=== PATIENT | female | born 1995 ===

== ENCOUNTER 2017-09-03 01:30 | Emergency (ER) | payer OTHER ==
[2017-09-03] MEDS ORDERED: NACL 0.9% 1000 ML 1,000 ML IV ONE ×2 (02:06→03:44)
[2017-09-03 02:13] LABS: Basophils % (Auto) 0.5 % (0.0-1.8); Eosinophils # (Auto) 0.1 K/mm3 (0.0-0.4); Eosinophils % (Auto) 0.8 % (0.0-4.3); Hematocrit 34.9 % (30.3-42.9); Hemoglobin 11.6 gm/dl (10.1-14.3); Lymphocytes # (Auto) 0.9 K/mm3 (1.2-5.4); Lymphocytes % (Auto) 14.2 % (13.4-35.0); Mean Corpuscular HGB Conc 33 % (30-34); Mean Corpuscular Hemoglobin 28 pg (28-32); Mean Corpuscular Volume 84 fl (79-97); Monocytes # (Auto) 0.5 K/mm3 (0.0-0.8); Monocytes % (Auto) 8.6 % (0.0-7.3); Platelet Count 224 K/mm3 (140-440); Red Blood Count 4.16 M/mm3 (3.65-5.03); Red Cell Distribution Width 13.4 % (13.2-15.2)
[2017-09-03 02:45] LABS: BUN/Creatinine Ratio 14; Blood Urea Nitrogen 10 mg/dL (7-17); Calcium 8.1 mg/dL (8.4-10.2); Hemolysis Index 60
[2017-09-03] MEDS ORDERED: TYLENOL PO ONE (03:22)
[2017-09-03 03:26] LABS: INR 0.93 (0.87-1.13)
[2017-09-03 03:27] LABS: Partial Thromboplastin Time 27.8 Sec. (24.2-36.6)
--- NOTE | 2017-09-03 03:53 | XRay Report ---
FINAL REPORT EXAM: XR CHEST ROUTINE 2V HISTORY: cough, sycnope COMPARISON: None available. FINDINGS:: Frontal and lateral views of the chest obtained. Cardiac silhouette is within normal limits. No focal consolidation or effusion. No pneumothorax. Visualized bony thorax is grossly intact. IMPRESSION:: No acute findings.
--- NOTE | 2017-09-03 04:03 | Cat Scan Report ---
FINAL REPORT EXAM: CT HEAD/BRAIN WO CON HISTORY: sandra, syncope, nose bleed COMPARISON: None available. TECHNIQUE: Axial images obtained skull base through vertex. FINDINGS: No acute intracranial hemorrhage, midline shift or pathologic extra axial fluid collection. Ventricles and cisterns are normal in size and configuration for the patient's age. Hu-white differentiation preserved. Calvarium grossly intact. Visualized ocular globes are grossly unremarkable. Moderate frothy material in the right sphenoid sinus. Moderate mucosal thickening the visualized ethmoid air cells. Visualized mastoid air cells are clear. Nasal bone is not included on this exam. IMPRESSION: No grossly acute intracranial abnormality. Moderate paranasal sinus disease.
[2017-09-03 04:48] LABS: Bilirubin,Urine NEG (Negative); Blood,Urine NEG (Negative); Color,Urine Yellow (Yellow); Mucus,Urine 2+ /HPF; RBC,Urine < 1.0 /HPF (0.0-6.0); Urobilinogen,Urine < 2.0 mg/dL (<2.0)
--- NOTE | 2017-09-03 05:13 | Emergency Department Report ---
ED ENT HPI - General Chief complaint: Nosebleed Stated complaint: NOSEBLEED; +LOC IN TRIAGE Time Seen by Provider: 09/03/17 02:37 Source: patient Mode of arrival: Ambulatory Limitations: No Limitations - History of Present Illness Initial comments: 22-year-old female with a past medical history of chronic intermittent epistaxis presents to the Hospital complaining of intermittent epistaxis for the last several days. She's had 3-4 episodes since yesterday. Blood will come from either nostril at a time. At noon she had a significant prolonged episode of bleeding from both nostrils. While bending over the toilet with the nosebleed she had a syncopal episode witnessed by her boyfriend lasting a couple of seconds. Upon arrival to the ED while at triage when the patient began to feel lightheaded, hot, and had ringing in her ears and had a repeat syncopal episode. Patient complain of shortness of breath earlier with syncopal episode at home but denies currently. She also denies chest pain, calf tenderness, recent travel, or edema. Patient has been having URI symptoms including cough and low-grade fever several days. Appetite has been decreased but she's been drinking plenty of fluids. She complains of a left-sided frontal headache that has been present prior to syncopal episode but is decreasing. Patient has had chronic intermittent epistaxis for years and has not been seen by ENT - Related Data Allergies Allergy/AdvReac Type Severity Reaction Status Date / Time No Known Allergies Allergy Unverified 09/03/17 01:42 ED Dental HPI - General Chief complaint: Nosebleed Stated complaint: NOSEBLEED; +LOC IN TRIAGE Time Seen by Provider: 09/03/17 02:37 Source: patient Mode of arrival: Ambulatory Limitations: No Limitations - Related Data Allergies Allergy/AdvReac Type Severity Reaction Status Date / Time No Known Allergies Allergy Unverified 09/03/17 01:42 ED Review of Systems ROS: Stated complaint: NOSEBLEED; +LOC IN TRIAGE Other details as noted in HPI Comment: All other systems reviewed and negative Other: Constitutional: No fevers chills or weight loss Eyes: No eye pain visual changes or discharge ENT: No ear pain or throat pain Neck: Denies pain Respiratory: Denies cough wheezing Cardiovascular: Denies chest pain, palpitations GI: Denies abdominal pain, nausea, vomiting, diarrhea : Denies dysuria Musculoskeletal: Denies back pain Skin: Denies rash, lesions, erythema Neurologic: Denies numbness, weakness Psychiatric: Denies suicidal ideation, hallucinations ED Past Medical Hx - Past Medical History Previous Medical History?: Yes Additional medical history: "sinus problems" - Surgical History Past Surgical History?: No - Social History Smoking Status: Never Smoker Substance Use Type: None ED Physical Exam - General Limitations: No Limitations - Other Other exam information: General: No limitations, patient is alert in no acute distress Head exam: Atraumatic, normocephalic Eyes exam: Normal appearance, pupils equal reactive to light, extraocular movements intact ENT: Moist mucous membrane, normal oropharynx. No posterior pharyngeal exudates or lymphadenopathy. No active epistaxis, septal hematoma, or clots of blood in nostril Neck exam: Normal inspection, full range of motion, no meningismus nontender Respiratory exam: Clear to auscultation bilateral, no wheezes, rales, crackles Cardiovascular: Normal rate and rhythm. Heart rate noted to increase with sitting up in the bed Abdomen: Soft, nondistended, and nontender, with normal bowel sounds, no rebound, or guarding Extremity: Full range of motion normal inspection no deformity, no calf tenderness or edema Back: Normal Inspection, full range of motion, no tenderness Neurologic: Alert, oriented x3, cranial nerves intact, no motor or sensory deficit Psychiatric: normal affect, normal mood Skin: Warm, dry, intact ED Course Vital Signs 09/03/17 09/03/17 09/03/17 01:36 02:05 02:13 Temperature 99.2 F 100.5 F H Pulse Rate 112 H 99 H Respiratory 16 16 Rate Blood Pressure 135/90 114/71 Blood Pressure 114/71 [Right] O2 Sat by Pulse 98 99 Oximetry 09/03/17 09/03/17 09/03/17 02:16 02:30 02:46 Temperature Pulse Rate Respiratory Rate Blood Pressure 111/77 121/79 121/79 Blood Pressure [Right] O2 Sat by Pulse 96 98 97 Oximetry 09/03/17 09/03/17 09/03/17 02:59 03:00 03:16 Temperature Pulse Rate Respiratory 16 Rate Blood Pressure 121/79 114/71 Blood Pressure [Right] O2 Sat by Pulse 100 100 Oximetry 09/03/17 09/03/17 09/03/17 03:30 04:02 04:08 Temperature Pulse Rate Respiratory 16 Rate Blood Pressure 114/71 114/71 Blood Pressure [Right] O2 Sat by Pulse 98 97 Oximetry 09/03/17 09/03/17 09/03/17 04:16 04:30 04:46 Temperature Pulse Rate 88 83 87 Respiratory 14 13 16 Rate Blood Pressure 143/96 132/86 132/86 Blood Pressure [Right] O2 Sat by Pulse 98 99 99 Oximetry 09/03/17 05:00 Temperature Pulse Rate 79 Respiratory 19 Rate Blood Pressure 121/89 Blood Pressure [Right] O2 Sat by Pulse 99 Oximetry - Reevaluation(s) Reevaluation #1: 09/03/17 05:13 Patient treated with normal saline with improvement in heart rate. Tylenol provided for low-grade fever. ED Medical Decision Making - Lab Data Result diagrams: 09/03/17 01:50 09/03/17 01:50 Lab Results 09/03/17 09/03/17 09/03/17 Range/Units 01:50 01:50 02:40 WBC 6.3 (4.5-11.0) K/mm3 RBC 4.16 (3.65-5.03) M/mm3 Hgb 11.6 (10.1-14.3) gm/dl Hct 34.9 (30.3-42.9) % MCV 84 (79-97) fl MCH 28 (28-32) pg MCHC 33 (30-34) % RDW 13.4 (13.2-15.2) % Plt Count 224 (140-440) K/mm3 Lymph % (Auto) 14.2 (13.4-35.0) % [place] % (Auto) 8.6 H (0.0-7.3) % Eos % (Auto) 0.8 (0.0-4.3) % Baso % (Auto) 0.5 (0.0-1.8) % Lymph # 0.9 L (1.2-5.4) K/mm3 [place] # 0.5 (0.0-0.8) K/mm3 Eos # 0.1 (0.0-0.4) K/mm3 Baso # 0.0 (0.0-0.1) K/mm3 Seg Neutrophils % 75.9 H (40.0-70.0) % Seg Neutrophils # 4.8 (1.8-7.7) K/mm3 PT 12.9 (12.2-14.9) Sec. INR 0.93 (0.87-1.13) APTT 27.8 (24.2-36.6) Sec. Sodium 134 L (137-145) mmol/L Potassium 3.9 (3.6-5.0) mmol/L Chloride 94.8 L (98-107) mmol/L Carbon Dioxide 22 (22-30) mmol/L Anion Gap 21 mmol/L BUN 10 (7-17) mg/dL Creatinine 0.7 (0.7-1.2) mg/dL Estimated GFR > 60 ml/min BUN/Creatinine Ratio 14 % Glucose 127 H (65-100) mg/dL Calcium 8.1 L (8.4-10.2) mg/dL HCG, Qual (Negative) Urine Color (Yellow) Urine Turbidity (Clear) Urine pH (5.0-7.0) Ur Specific [place] (1.003-1.030) Urine Protein (Negative) mg/dL Urine Glucose (UA) (Negative) mg/dL Urine Ketones (Negative) mg/dL Urine Blood (Negative) Urine Nitrite (Negative) Urine Bilirubin (Negative) Urine Urobilinogen (<2.0) mg/dL Ur Leukocyte Esterase (Negative) Urine WBC (Auto) (0.0-6.0) /HPF Urine RBC (Auto) (0.0-6.0) /HPF Urine Mucus /HPF 09/03/17 09/03/17 Range/Units 02:40 04:12 WBC (4.5-11.0) K/mm3 RBC (3.65-5.03) M/mm3 Hgb (10.1-14.3) gm/dl Hct (30.3-42.9) % MCV (79-97) fl MCH (28-32) pg MCHC (30-34) % RDW (13.2-15.2) % Plt Count (140-440) K/mm3 Lymph % (Auto) (13.4-35.0) % [place] % (Auto) (0.0-7.3) % Eos % (Auto) (0.0-4.3) % Baso % (Auto) (0.0-1.8) % Lymph # (1.2-5.4) K/mm3 [place] # (0.0-0.8) K/mm3 Eos # (0.0-0.4) K/mm3 Baso # (0.0-0.1) K/mm3 Seg Neutrophils % (40.0-70.0) % Seg Neutrophils # (1.8-7.7) K/mm3 PT (12.2-14.9) Sec. INR (0.87-1.13) APTT (24.2-36.6) Sec. Sodium (137-145) mmol/L Potassium (3.6-5.0) mmol/L Chloride (98-107) mmol/L Carbon Dioxide (22-30) mmol/L Anion Gap mmol/L BUN (7-17) mg/dL Creatinine (0.7-1.2) mg/dL Estimated GFR ml/min BUN/Creatinine Ratio % Glucose (65-100) mg/dL Calcium (8.4-10.2) mg/dL HCG, Qual Negative (Negative) Urine Color Yellow (Yellow) Urine Turbidity Clear (Clear) Urine pH 5.0 (5.0-7.0) Ur Specific [place] 1.025 (1.003-1.030) Urine Protein 30 mg/dl (Negative) mg/dL Urine Glucose (UA) Neg (Negative) mg/dL Urine Ketones 20 (Negative) mg/dL Urine Blood Neg (Negative) Urine Nitrite Neg (Negative) Urine Bilirubin Neg (Negative) Urine Urobilinogen < 2.0 (<2.0) mg/dL Ur Leukocyte Esterase Neg (Negative) Urine WBC (Auto) 3.0 (0.0-6.0) /HPF Urine RBC (Auto) < 1.0 (0.0-6.0) /HPF Urine Mucus 2+ /HPF - EKG Data -: EKG Interpreted by In EKG shows normal: sinus rhythm, axis (13), QRS complexes (82), ST-T waves (no stemi/t inv) Rate: normal (91) - EKG Data When compared to previous EKG there are: previous EKG unavailable - Radiology Data Radiology results: report reviewed Read by radiology CT head: No acute findings Chest x-ray: No acute findings - Medical Decision Making Other differential: Coagulopathy, thrombocytopenia Epistaxis Chronic intermittent No active bleeding in the ED H&H normal Platelet normal No coagulopathy ENT follow-up will be encouraged Syncope No persistent chest pain or shortness of breath No arrhythmia Suspect vasovagal/acute blood loss/dehydration secondary to poor by mouth intake due to URI Patient has IUD control but no signs of DVT or symptoms of PE at this time. Patient informed that if she develops pleuritic chest pain and dyspnea she will need to return for evaluation of PE URI Low-grade fever Chest x-ray normal No signs of sepsis Patient feeling better with ED treatment. (normal saline and Tylenol) Patient be discharged home to follow-up with a primary care doctor says clinic and ENT - Differential Diagnosis epistaxis, anemia, vasovagal, volume depletion, arrhythmia, infection Critical Care Time: No Critical care attestation.: If time is entered above; I have spent that time in minutes in the direct care of this critically ill patient, excluding procedure time. ED Disposition Clinical Impression: Epistaxis, Syncope, URI (upper respiratory infection) Disposition: TO HOME OR SELFCARE Is pt being admited?: No Does the pt Need Aspirin: No Condition: Stable Instructions: Syncope (ED), Upper Respiratory Infection (ED), Epistaxis (ED) Additional Instructions: Follow up with the ear nose throat doctor for further management of intermittent nosebleeds. Continue to drink plenty of fluids. Return if symptoms worsen as indicated by your discharge instructions. Take Tylenol as needed for fever or pain. Avoid aspirin/Motrin/Aleve. Referrals: FIDEL NGUYEN MD [Staff Physician] - 3-5 Days (Primary care doctor) ELADIO CHAWLA MD [Staff Physician] - 3-5 Days (ENT) PANCHO SAUNDERS MD [Staff Physician] - 3-5 Days (ENT ) [facility] [Provider Group] - 3-5 Days (medical clinic) Time of Disposition: 05:24
[2017-09-03 05:50] VITALS: BP 129/87
== END 2017-09-03 05:50 | disposition home or self-care (01) ==
LOC: ED 01:30
DX: R04.0 Epistaxis (principal); R55 Syncope and collapse; J06.9 Acute upper respiratory infection, unspecified
CPT/HCPCS: 36415; 70450; 71046; 80048; 81001; 84703; 85025; 85610; 85730; 93005; 93010; 96360; 99285; J7030